=== PATIENT | male | born 1995 | race Caucasian/White ===

== ENCOUNTER 2021-03-19 18:21 | Emergency (ER) | payer SELFPAY ==
[2021-03-19 18:38] VITALS: BP 128/82
[2021-03-19] MEDS ORDERED: TETANUS/DIPHTHERIA/PERTUSSIS 0.5 ML SYRINGE IM ONE (19:02)
[2021-03-19] MEDS ORDERED: BACITRACIN ZINC OINT 1 PACKET TOP STA (19:02)
[2021-03-19] MEDS ORDERED: BUFFERED LIDOCAINE 10 ML SYRINGE SUBQ STA (19:03)
--- NOTE | 2021-03-19 19:06 | ED Physician Documentation ---
History of Present Illness - Stated complaint Stated Complaint: LEFT FINGER LAC - Chief complaint Chief Complaint: Laceration - Additonal information Additional information: 25-year-old male presents emergency department for evaluation of a left middle finger wound. Reports his dog vaccines as up-to-date. Patient is unsure of his personal tetanus. The dog bit his finger while playing and he has sustained a near full tip amputation of the middle finger. Patient is right-hand dominant. Review of Systems Constitutional: reports: Reviewed and negative Ears: reports: Reviewed and negative Nose: reports: Reviewed and negative Throat: reports: Reviewed and negative Cardiac: reports: Reviewed and negative Respiratory: reports: Reviewed and negative GI: reports: Reviewed and negative Skin: reports: Laceration (s) Musculoskeletal: reports: Reviewed and negative PD PAST MEDICAL HISTORY - Present Medications Home Medications: Ambulatory Orders Medication Instructions Recorded Confirmed Amox/Clav 875/125 [Augmentin] 1 each PO Q12H #20 tablet 03/19/21 - Allergies Allergies/Adverse Reactions: Allergies Allergy/AdvReac Type Severity Reaction Status Date / Time No Known Drug Allergies Allergy Verified 03/19/21 18:34 PD ED PE EXPANDED - Extremities Extremities: Left finger(s) (Left middle finger distal tip amputation at the distal nailbed. The tip is hanging on by a thread of skin from the fat pad. Patient has preserved flexion extension at the DIP joint. ) Results - Vitals Vitals: Vital Signs - 24 hr 03/19/21 18:34 Temperature 37.0 C Heart Rate 76 Respiratory 18 Rate Blood Pressure 128/82 H O2 Saturation 100 Oxygen O2 Source Room air - Rads (name of study) finger Radiology: Final report received (no fracture) Procedures - Laceration (location) middle finger left Length in cm: 3 Wound type: Into subcut fat, Into muscle, Contaminated, Heavily Contaminated, Exposure of cartilage Neurovascular status: Sensory intact, Motor intact Tendon involvement: Tendon intact Anesthesia: LET Wound preparation: Chlorhexadine, Irrigated copiously NS, Debrided moderately Skin layer closure: Interrupted, Size #-0 - enter number (4), Sutures - enter # (8) Other: Patient tolerated well, No complications, Neurovascular intact, Tetanus booster given PD MEDICAL DECISION MAKING - ED course Complexity details: reviewed results, re-evaluated patient, considered differential ED course: 25-year-old male here with a left finger laceration and near tip amputation after accidental dog bite from his dog when he was breaking up a fight. His dog's vaccines are up-to-date. Patient's tetanus was updated today. X-ray does not reveal a fracture. The Fingertip was reattached with 8 interrupted sutures. The patient is aware that this tip may not survive. He was given ceftriaxone here in the emergency department and will be discharged with prescription for Augmentin. Routine wound care and emergent return precautions discussed. Departure - Departure Disposition: 01 Home, Self Care Clinical Impression: Laceration of finger Qualifiers: Encounter type: initial encounter Finger: middle finger Damage to nail status: with damage Foreign body presence: without foreign body Laterality: left Qualified Code(s): S61.313A - Laceration without foreign body of left middle finger with damage to nail, initial encounter Condition: Stable Record reviewed to determine appropriate education?: Yes Instructions: ED Laceration All Prescriptions: Amox/Clav 875/125 [Augmentin] 1 each PO Q12H #20 tablet Comments: Michael are seen in the emergency department today for a near tip amputation of your left middle finger after your dog bit you. We did attach this finger tip back on as there is a possibility it may survive and improve pain and wound healing. Please fill the prescription for the antibiotics to the pharmacy tomorrow. This wound does carry a high risk of infection if you develop any signs of fevers, redness milky drainage then please return immediately to the ER. Your sutures should be removed in approximately 10 days. In 24 hours you may remove the dressing wash gently with warm soap and water, apply any antibiotic ointment and a simple bandage. Your tetanus is up-to-date. Please attempt to keep your wound clean and dry. Do not submerge it in dirty dishwater or bath water. Return to the emergency department if you have any concerns of infection such as redness, fevers milky drainage increased pain.
[2021-03-19] MEDS ORDERED: cefTRIAXone 1 GM VIAL IM STA (19:47)
[2021-03-19] MEDS ORDERED: LIDOCAINE 1% 2 ML VIAL MC ONE (19:47)
--- NOTE | 2021-03-19 20:12 | XRAY Report ---
PROCEDURE: Finger(s) LT INDICATIONS: dog bite; eval for fx TECHNIQUE: AP hand, 2 views of the third finger(s) acquired. COMPARISON: None. FINDINGS: Bones: No fractures or dislocations. No suspicious bony lesions. Soft tissues: No suspicious soft tissue calcifications. Laceration at the third digit tuft. No radi opaque foreign body. IMPRESSION: No acute osseous abnormality. Third digit tuft laceration. Reviewed by: Abhijit Gray MD on 03/19/2021 8:11 PM PDT Approved by: Abhijit Gray MD on 03/19/2021 8:11 PM PDT Station ID: [id number]
== END 2021-03-19 20:07 | disposition home or self-care (01) ==
LOC: ED 18:21
DX: S61.313A Laceration without foreign body of left middle finger with damage to nail, initial encounter (principal); W54.0XXA Bitten by dog, initial encounter; Y93.89 Activity, other specified; Z23 Encounter for immunization
CPT/HCPCS: 13132; 73140; 90471; 90715; 96372; 99283; A9270